=== PATIENT | male | born 1955 | race Hispanic/Latino ===

== ENCOUNTER 2017-02-06 09:06 | Emergency (ER) | payer MEDICAID ==
[2017-02-06 09:07] VITALS: PULSE 67; BMI 30.4
[2017-02-06 09:43] VITALS: O2SAT 98
[2017-02-06] MEDS ORDERED: Sodium Chloride 0.9% 1,000 ML IV STA (09:52)
[2017-02-06 10:19] LABS: BASO % 0.7 % (0.0-2.0); EOS # 0.1 K/uL (0.0-0.7); EOS % 1.3 % (0.0-4.0); HEMATOCRIT 37.9 % (35.0-51.0); LYMPH # 1.4 K/uL (1.0-4.3); MEAN CORPUSCULAR HEMOGLOBIN 30.1 pg (27.0-31.0); MEAN CORPUSCULAR HGB CONC 33.5 g/dL (33.0-37.0); MONO # 0.4 K/uL (0.0-0.8); MONO % 6.3 % (0.0-10.0); NEUT # 4.6 K/uL (1.8-7.0); NEUT % 70.7 % (50.0-75.0); NRBC % 0.1 % (0.0-0.0); RED CELL DISTRIBUTION WIDTH 13.7 % (11.5-14.5); WHITE BLOOD COUNT 6.5 K/uL (4.8-10.8)
[2017-02-06 10:34] LABS: ALB/GLOB RATIO 1.3 (1.0-2.1); ALKALINE PHOSPHATASE 68 U/L (38-126); ALT/SGPT 16 U/L (21-72); AST/SGOT 17 U/L (17-59); BILIRUBIN,TOTAL 0.3 mg/dl (0.2-1.3); BLOOD UREA NITROGEN 28 mg/dl (9-20); CALCIUM 9.3 mg/dL (8.4-10.2); CARBON DIOXIDE 22 mmol/L (22-30); CHLORIDE 101 mmol/L (98-107); GFR AFRICAN-AMERICAN > 60; GLUCOSE,RANDOM 261 mg/dL (75-110); POTASSIUM 4.5 MMOL/L (3.6-5.0); SODIUM 132 mmol/l (132-148); TOTAL PROTEIN 7.1 G/DL (6.3-8.2)
[2017-02-06 11:32] LABS: URINE BILIRUBIN LARGE (NEGATIVE); URINE COLOR DARK RED (YELLOW); URINE GLUCOSE (UA) >1000 mg/dL (Normal); URINE KETONE 15 mg/dL (NEGATIVE)
[2017-02-06 11:33] LABS: PH,URINE 6.5 (5.0-8.0); RBC URINE 2000 /hpf (0-3); URINE BLOOD LARGE (NEGATIVE); URINE LEUKOCYTE ESTERASE LARGE Leu/uL (Negative); URINE PROTEIN >=300 mg/dL (NEGATIVE)
[2017-02-06 11:36] LABS: URINE BACTERIA SMALL (<OCC); WBC URINE 100 /hpf (0-5)
[2017-02-06] MEDS ORDERED: cefTRIAXone (Rocephin) 1 gm Inj ONE (11:58)
--- NOTE | 2017-02-06 12:04 | ED PDOC ---
HPI: Male Pain Time Seen by Provider: 02/06/17 09:19 Chief Complaint (Nursing): Male Genitourinary Chief Complaint (Provider): Im urinating blood History Per: Patient History/Exam Limitations: no limitations Onset/Duration Of Symptoms: Days (1), Sudden Onset Current Symptoms Are (Timing): Still Present Severity: Mild Additional Complaint(s): 61yo male c/o gross hematuria since last night, sudden onset. Denies pain w urination, inability to start urine stream or pelvic pain or fullness. Denies back pain, fever or trauma. States had similar episode 2008 for which was told her had a UTI and had a cystoscopy via Dr Vuong. Past Medical History Reviewed: Historical Data, Nursing Documentation, Vital Signs Vital Signs: Last Vital Signs Temp 97.7 F 02/06/17 09:20 Pulse 70 02/06/17 09:20 Resp 20 02/06/17 09:20 BP 137/83 02/06/17 09:13 Pulse Ox 98 02/06/17 09:20 - Medical History PMH: Anxiety, Atrial Fibrillation, Cardia Arrhythmia (HS SVT ON LONGER SINCE ABLATION 1 YEAR AGO), CVA, Diabetes, Gall Bladder Disease, HTN, Hypercholesterolemia, Parkinson's Disease, Peripheral Edema, Chronic Kidney Disease (MILD RENAL INSUFFICIENY) - Surgical History Surgical History: Cholecystectomy - Family History Family History: States: Unknown Family Hx - Social History Current smoker - smoking cessation education provided: No - Immunization History Hx Tetanus Toxoid Vaccination: (unknown) Hx Influenza Vaccination: Yes Hx Pneumococcal Vaccination: Yes - Home Medications Home Medications: Ambulatory Orders Medication Instructions Recorded Alfuzosin HCl [Uroxatral] 10 mg PO HS 03/15/15 Aspirin [Aspirin EC] 81 mg PO DAILY 03/15/15 Atorvastatin Calcium [Lipitor] 20 mg PO HS 03/15/15 Clopidogrel [Plavix] 75 mg PO DAILY 03/15/15 Liraglutide [Victoza 2-Boris] 1.8 mg SC DAILY 03/15/15 Lisinopril [Zestril] 40 mg PO DAILY 03/15/15 MetFORMIN [glucoPHAGE] 1,000 mg PO BID 03/15/15 Metoprolol Succinate [Toprol XL] 50 mg PO DAILY 03/15/15 Alprazolam [Xanax] 0.5 mg PO BID PRN 05/03/16 Carbidopa/Levodopa [Sinemet Cr [address] PO QID 05/03/16 mg-100 mg] Ciprofloxacin [Cipro] 500 mg PO BID #14 tab 02/06/17 Empagliflozin [Jardiance] 25 mg PO BID 02/06/17 Furosemide [Lasix] 40 mg PO DAILY 02/06/17 Insulin Detemir [Levemir] 12 units SC HS 02/06/17 Lubiprostone [Amitiza] 24 mcg PO DAILY 02/06/17 Pioglitazone HCl 30 mg PO DAILY 02/06/17 [id number] CD [Cardizem CD] 180 mg PO DAILY 02/06/17 - Allergies Allergies/Adverse Reactions: Allergies Allergy/AdvReac Type Severity Reaction Status Date / Time No Known Allergies Allergy Verified 02/07/17 11:58 Review of Systems ROS Statement: Except As Marked, All Systems Reviewed And Found Negative Constitutional: Negative for: Fever, Chills Cardiovascular: Negative for: Chest Pain, Palpitations Respiratory: Negative for: Cough, Shortness of Breath Gastrointestinal: Negative for: Nausea, Vomiting Genitourinary Male: Positive for: Hematuria. Negative for: Dysuria, Frequency, Incontinence, Scrotal Pain, Rash, Penile Pain Physical Exam - Reviewed Nursing Documentation Reviewed: Yes Vital Signs Reviewed: Yes - Physical Exam Appears: Positive for: Well, Non-toxic, No Acute Distress Head Exam: Positive for: ATRAUMATIC, NORMAL INSPECTION, NORMOCEPHALIC Skin: Positive for: Normal Color, Warm, DRY Eye Exam: Positive for: EOMI, Normal appearance, PERRL ENT: Positive for: Normal ENT Inspection Neck: Positive for: Normal, Painless ROM Cardiovascular/Chest: Positive for: Regular Rate, Rhythm Respiratory: Positive for: CNT, Normal Breath Sounds Gastrointestinal/Abdominal: Positive for: Normal Exam, Bowel Sounds, Soft. Negative for: Tenderness Back: Positive for: Normal Inspection Extremity: Positive for: Normal ROM Neurologic/Psych: Positive for: Alert, Oriented. Negative for: Motor/Sensory Deficits - Laboratory Results Result Diagrams: 02/06/17 10:10 02/06/17 10:10 - ECG O2 Sat by Pulse Oximetry: 98 Medical Decision Making Medical Decision Making: workup initiated for painless gross hematuria without fever. pt urinating freely. bloodwork clinically unremarkable UCx sent. Given dose rocephin in ED and start cipro PO, see urology for followup and poss cysto scheduling. He will call Dr Vuong tuesday. Case discussed w Dr Quintero PMD. Disposition - Clinical Impression Clinical Impression: Hematuria, UTI (urinary tract infection) - Patient ED Disposition Is Patient to be Admitted: No Counseled Patient/Family Regarding: Studies Performed, Diagnosis, Need For Followup, Rx Given - Disposition Referrals: Yunior Vuong Jr., MD [Staff Provider] - Ismael Quintero MD [Family Provider] - Disposition Time: 13:05 Condition: STABLE Additional Instructions: Hold plavix today, resume tomorrow. Return to ER for any worse or new symptoms, if youre unable to urinate or develop any fever, abdominal, pelvic or back pain. DRINK PLENTY OF FLUIDS. TAKE ANTIBIOTICS DIRECTED. SEE DR VUONG FOR FOLLOWUP AND FURTHER TESTING AND TREATMENT. Prescriptions: Ciprofloxacin [Cipro] 500 mg PO BID #14 tab Instructions: Urinary Tract Infection in Men (ED), Acute Hematuria (ED)
[2017-02-06 14:18] VITALS: BP 128/78; PULSE 78; RESP 19; TEMP 97.6
== END 2017-02-06 14:18 | disposition home or self-care (01) ==
LOC: H.ER 09:06
DX: N39.0 Urinary tract infection, site not specified (principal); E11.22 Type 2 diabetes mellitus with diabetic chronic kidney disease; Z79.4 Long term (current) use of insulin; R31.0 Gross hematuria; Z86.73 Personal history of transient ischemic attack (TIA), and cerebral infarction without residual deficits; Z79.82 Long term (current) use of aspirin; E78.00 Pure hypercholesterolemia, unspecified; G20 Parkinson's disease; I12.9 Hypertensive chronic kidney disease with stage 1 through stage 4 chronic kidney disease, or unspecified chronic kidney disease

== ENCOUNTER 2017-02-07 10:40 | Emergency (ER) | payer MEDICAID ==
[2017-02-07 10:40] VITALS: PULSE 67; BMI 30.4
[2017-02-07 11:11] VITALS: BP 103/64; PULSE 80; RESP 18; TEMP 98.1; O2SAT 98
--- NOTE | 2017-02-07 13:32 | ED PDOC ---
HPI: Male Pain Time Seen by Provider: 02/07/17 12:15 Chief Complaint (Nursing): Male Genitourinary Chief Complaint (Provider): Male Genitourinary History Per: Patient History/Exam Limitations: no limitations Onset/Duration Of Symptoms: Days Current Symptoms Are (Timing): Better Severity: Mild Quality Of Discomfort: denies: "Pain" Associated Symptoms: Urinary Symptoms. denies: Nausea, Back Pain Alleviating Factors: None Additional Complaint(s): Patient is a 61 year old male who presents to ED for hematuria today. Patient was evaluated in ED yesterday for frequency and dysuria, diagnosed with a UTI and prescribed Cipro. Patient notes this morning he took his second dose but passed to blood clots while using the bathroom. Patient states symptoms began to improve after this and urine has been clearing up since. Patient denies back pain, abdominal pain, flank pain, fever or chills. Of note, while waiting in the waiting room patient made an appointment with his urologist Dr. Villa for Tuesday. Past Medical History Reviewed: Historical Data, Nursing Documentation, Vital Signs Vital Signs: Last Vital Signs Temp 98.1 F 02/07/17 11:10 Pulse 80 02/07/17 11:10 Resp 18 02/07/17 11:10 BP 103/64 02/07/17 11:10 Pulse Ox 98 02/07/17 11:59 - Medical History PMH: Anxiety, Atrial Fibrillation, Cardia Arrhythmia (HS SVT ON LONGER SINCE ABLATION 1 YEAR AGO), CVA, Diabetes, Gall Bladder Disease, HTN, Hypercholesterolemia, Parkinson's Disease, Peripheral Edema, Chronic Kidney Disease (MILD RENAL INSUFFICIENY) - Surgical History Surgical History: Cholecystectomy - Family History Family History: States: Unknown Family Hx - Living Arrangements Living Arrangements: With Family - Immunization History Hx Tetanus Toxoid Vaccination: (unknown) Hx Influenza Vaccination: Yes Hx Pneumococcal Vaccination: Yes - Home Medications Home Medications: Ambulatory Orders Medication Instructions Recorded Alfuzosin HCl [Uroxatral] 10 mg PO HS 03/15/15 Aspirin [Aspirin EC] 81 mg PO DAILY 03/15/15 Atorvastatin Calcium [Lipitor] 20 mg PO HS 03/15/15 Clopidogrel [Plavix] 75 mg PO DAILY 03/15/15 Liraglutide [Victoza 2-Boris] 1.8 mg SC DAILY 03/15/15 Lisinopril [Zestril] 40 mg PO DAILY 03/15/15 MetFORMIN [glucoPHAGE] 1,000 mg PO BID 03/15/15 Metoprolol Succinate [Toprol XL] 50 mg PO DAILY 03/15/15 Alprazolam [Xanax] 0.5 mg PO BID PRN 05/03/16 Carbidopa/Levodopa [Sinemet Cr [address] PO QID 05/03/16 mg-100 mg] Ciprofloxacin [Cipro] 500 mg PO BID #14 tab 02/06/17 Empagliflozin [Jardiance] 25 mg PO BID 02/06/17 Furosemide [Lasix] 40 mg PO DAILY 02/06/17 Insulin Detemir [Levemir] 12 units SC HS 02/06/17 Lubiprostone [Amitiza] 24 mcg PO DAILY 02/06/17 Pioglitazone HCl 30 mg PO DAILY 02/06/17 [id number] CD [Cardizem CD] 180 mg PO DAILY 02/06/17 - Allergies Allergies/Adverse Reactions: Allergies Allergy/AdvReac Type Severity Reaction Status Date / Time No Known Allergies Allergy Verified 02/07/17 11:58 Review of Systems Constitutional: Negative for: Fever, Chills Gastrointestinal: Negative for: Nausea, Vomiting, Abdominal Pain, Diarrhea Genitourinary Male: Positive for: Hematuria. Negative for: Dysuria, Frequency, Penile Discharge, Penile Pain Musculoskeletal: Negative for: Back Pain Neurological: Negative for: Weakness Physical Exam - Reviewed Nursing Documentation Reviewed: Yes Vital Signs Reviewed: Yes - Physical Exam Appears: Positive for: Non-toxic, No Acute Distress Skin: Positive for: Normal Color, Warm Eye Exam: Positive for: Normal appearance Neck: Positive for: Normal Gastrointestinal/Abdominal: Positive for: Normal Exam. Negative for: Tenderness , Distended Back: Positive for: Normal Inspection. Negative for: L CVA Tenderness, R CVA Tenderness Extremity: Positive for: Normal ROM Neurologic/Psych: Positive for: Alert, Oriented - ECG O2 Sat by Pulse Oximetry: 98 (RA) Pulse Ox Interpretation: Normal - Progress ED Course And Treament: Pt. instructed to f/u with Dr. Villa without fail. Also told to return to ED if symptoms persist or worsen. Pt. is to continue Cipro as prescribed. Urine culture reviewed but show no sensitivity yet. Medical Decision Making Medical Decision Making: Time: 131 Initial Impression: UTI Initial Plan: -- Urine culture Patient instructed to continue antibiotics and follow up as scheduled with urologist on Tuesday02/09/17 Scribe Attestation: Documented by Korin Kothari, acting as a scribe for Bhavesh Suarez PA-C. Provider Scribe Attestation: All medical record entries made by the Scribe were at my direction and personally dictated by me. I have reviewed the chart and agree that the record accurately reflects my personal performance of the history, physical exam, medical decision making, and the department course for this patient. I have also personally directed, reviewed, and agree with the discharge instructions and disposition. Disposition - Clinical Impression Clinical Impression: UTI (urinary tract infection) - Patient ED Disposition Is Patient to be Admitted: No - Disposition Referrals: Yunior Villa Jr., MD [Staff Provider] - Disposition: Routine/Home Disposition Time: 13:15 Condition: STABLE Additional Instructions: Follow up with Dr. Villa on Tuesday as previously scheduled without fail. Return to ED immediately if symptoms persist or worsen. Continue taking Cipro without fail. Instructions: Urinary Tract Infection in Men (ED) Print Language: IRISH
== END 2017-02-07 13:38 | disposition home or self-care (01) ==
LOC: H.ER 10:40
DX: N39.0 Urinary tract infection, site not specified (principal); E11.22 Type 2 diabetes mellitus with diabetic chronic kidney disease; E78.00 Pure hypercholesterolemia, unspecified; G20 Parkinson's disease; I12.9 Hypertensive chronic kidney disease with stage 1 through stage 4 chronic kidney disease, or unspecified chronic kidney disease; Z79.4 Long term (current) use of insulin; Z86.73 Personal history of transient ischemic attack (TIA), and cerebral infarction without residual deficits